=== PATIENT | male | born 1965 | race Caucasian/White ===

== ENCOUNTER 2017-08-01 06:36 | Emergency (ER) | payer BC ==
[2017-08-01] MEDS ORDERED: Ondansetron PF 4 MG/2 ML Vial ONE (06:49)
[2017-08-01] MEDS ORDERED: Morphine 4 MG/ML Carpuject ONE (06:49)
[2017-08-01 07:13] LABS: Band 4 % (5-11); Eosinophils 1 % (0-10); Hemoglobin 16.8 g/dL (14.0-18.0); Lymphocytes 2 % (21-51); MDiff Complete? YES; Mean Corpuscular HGB CONC 36.3 g/dL (32.0-36.0); Mean Corpuscular Hemoglobin 31.9 pg (27.0-31.0); Mean Corpuscular Volume 87.9 fl (80.0-94.0); Mean Platelet Volume 7.7 fL (7.4-10.4); Monocytes 10 % (0-10); Neutrophil 83 % (42-75); Platelet Count 278 thou/uL (130-400); RBC Distribution Width 9.6 % (11.5-14.5); Red Blood Cell (RBC) Count 5.26 mill/uL (4.70-6.10); White Blood Cell (WBC) Count 17.4 thou/uL (4.8-10.8)
[2017-08-01 07:14] LABS: ALT (SGPT) 16 U/L (8-55); AST (SGOT) 14 U/L (5-34); Albumin 4.2 g/dL (3.5-5.0); Alkaline Phosphatase 67 U/L (40-150); Anion Gap 15 mmol/L (10-20); BUN (Urea Nitrogen) 11 mg/dL (8.4-25.7); Bilirubin, Total 2.5 mg/dL (0.2-1.2); Calc. Creatinine Clearance 0 mL/min (70-130); Calcium 9.6 mg/dL (7.8-10.44); Carbon Dioxide 23 mmol/L (22-29); Chloride 100 mmol/L (98-107); Estimated GFR-MDRD Greater than 90; Globulin 3.5 g/dL (2.4-3.5); Glucose 117 mg/dL (70-105); Lipase 22 U/L (8-78); Potassium 4.1 mmol/L (3.5-5.1); Protein, Total 7.7 g/dL (6.0-8.3); Sodium 134 mmol/L (136-145)
[2017-08-01 07:43] LABS: Bilirubin Negative (Negative); Blood, Urine Trace (Negative); Clarity Clear (Clear); Glucose, Urine (Dipstick) Negative (Negative); Leukocyte Negative (Negative); Nitrite Negative (Negative); Protein, Urine (Dipstick) Negative (Neg-Trace); Urobilinogen 0.2 mg/dL (0.2-1.0); pH, Urine 6.5 (5.0-9.0)
[2017-08-01] MEDS ORDERED: metroNIDAZOLE 500 MG/100 ML BAG ONE (07:49)
[2017-08-01 07:55] LABS: Bacteria/HPF None Seen HPF (None Seen); RBC/HPF 0-3 HPF (0-3); Squamous Epithelial None Seen HPF (0-3); WBC/HPF None Seen HPF (0-3)
[2017-08-01] MEDS ORDERED: Iopamidol 370 76% 100 ML VIAL ONE (09:00)
--- NOTE | 2017-08-01 09:18 | CT ---
CT ABDOMEN AND PELVIS WITH ORAL AND IV CONTRAST: Date: 08/01/17 HISTORY: Abdominal pain, most severe in the suprapubic region and left lower quadrant. FINDINGS: The lung base is unremarkable. The liver, spleen, pancreas, adrenal glands, and kidneys are normal. No calcified gallstones are seen . No free air or free fluid is seen in the abdomen. There is a tiny amount of free fluid in the pelvi s. The small bowel loops are not abnormally dilated. There is sigmoid diverticulosis. There is thickenin g of the wall of the sigmoid colon with pericolonic inflammatory changes consistent with sigmoid dive rticulitis. No abnormally loculated fluid collections are seen to suggest abscess formation. There ar e vascular calcifications without evidence of aneurysmal dilatation of the abdominal aorta. There are degenerative changes in the spine. IMPRESSION: Sigmoid diverticulitis. POS: NESSA
== END 2017-08-01 10:25 | disposition home or self-care (01) ==
LOC: SCSER 06:36
DX: K57.32 Diverticulitis of large intestine without perforation or abscess without bleeding (principal); Z87.891 Personal history of nicotine dependence
CPT/HCPCS: 74177; 80053; 81003; 81015; 83690; 85025; 96361; 96365; 96368; 96375; J1956; J2270; J2405

== ENCOUNTER 2017-12-19 03:27 | Emergency (ER) | payer BC ==
[2017-12-19] MEDS ORDERED: HYDROcodone/Acetaminophen 10/325 mg Tablet ONE (04:54)
--- NOTE | 2017-12-19 08:09 | RAD ---
LEFT HAND 3 VIEWS: Date: 12/19/17 HISTORY: Injury, left hand pain. FINDINGS/IMPRESSION: No acute fracture or dislocation is identified. POS: OFF
--- NOTE | 2017-12-19 08:11 | RAD ---
RIGHT HAND 3 VIEWS: Date: 12/19/17 HISTORY: Injury. Right hand pain. FINDINGS/IMPRESSION: No acute fracture or dislocation is identified. POS: OFF
== END 2017-12-19 06:06 | disposition home or self-care (01) ==
LOC: SCSER 03:27
DX: S60.221A Contusion of right hand, initial encounter (principal); G56.02 Carpal tunnel syndrome, left upper limb; M54.6 Pain in thoracic spine; Z87.891 Personal history of nicotine dependence; Z79.891 Long term (current) use of opiate analgesic; Y04.8XXA Assault by other bodily force, initial encounter

== ENCOUNTER 2019-12-13 02:47 | Emergency (ER) | payer BC ==
[2019-12-13] MEDS ORDERED: Fluorescein Opthalmic Strip ONE (03:00)
[2019-12-13] MEDS ORDERED: Proparacaine 0.5% Opth 15 ML BOT ONE (03:01)
[2019-12-13] MEDS ORDERED: Adacel (T-DAP) 0.5 ML SYRINGE ONE (03:03)
[2019-12-13] MEDS ORDERED: Erythromycin Base 0.5% Oint 1 GM TUBE ONE (03:19)
== END 2019-12-13 03:22 | disposition home or self-care (01) ==
LOC: ERS 02:47
DX: T15.01XA Foreign body in cornea, right eye, initial encounter (principal); F17.210 Nicotine dependence, cigarettes, uncomplicated
CPT/HCPCS: 65222; 90471; 90715